=== PATIENT | female | born 1945 | race Two or more races ===

== ENCOUNTER 2023-05-08 05:30 | Day surgery (SDC) | payer OTHER | END 2023-05-08 12:40 | disposition home or self-care (01) | LOC: AMB-ENDOS 05:30 → CIR.AMB 10:38 → AMB-ENDOS 12:40 | PROVIDERS: ATTEND Colon & Rectal Surgery | DX: C18.6 Malignant neoplasm of descending colon (principal); K57.30 Diverticulosis of large intestine without perforation or abscess without bleeding; K58.9 Irritable bowel syndrome, unspecified; K92.1 Melena; K64.8 Other hemorrhoids; Z20.822 Contact with and (suspected) exposure to COVID-19 ==